=== PATIENT | male | born 1995 | race Caucasian/White ===

== ENCOUNTER 2017-12-12 02:30 | Emergency (ER) | payer OTHER ==
[~2017-12-12] VITALS: Ht 175.3 cm; Wt 72.6 kg
[~2017-12-12 02:30] MED LIST: ACNE MEDICINE; IBUPROFEN 600600 M1 PO; VYVANSE20 MG PO; ZITHROMAX TRI-500 MG PO
[2017-12-12] MEDS ORDERED: ALEVE220 MG PO (02:37)
[2017-12-12] MEDS ORDERED: NORCO 5-325 TA1 EACH PO (03:05)
[2017-12-12 03:29] VITALS: BP 143/80
== END 2017-12-12 03:30 | disposition home or self-care (01) ==
LOC: ER 02:30
DX: S52.121A Displaced fracture of head of right radius, initial encounter for closed fracture (principal); M25.532 Pain in left wrist; W17.89XA Other fall from one level to another, initial encounter; Y93.89 Activity, other specified; Y92.89 Other specified places as the place of occurrence of the external cause; Y99.8 Other external cause status

== ENCOUNTER 2019-01-28 00:01 | Emergency (ER) | payer OTHER ==
[~2019-01-28] VITALS: Ht 175.3 cm; Wt 81.7 kg
[~2019-01-28 00:01] MED LIST changes: +ALEVE220 MG PO; +NORCO 5-325 TA1 EACH PO
[2019-01-28] MEDS ORDERED: NOHOMEMEDICATIONS (00:26)
[2019-01-28 00:28] LABS: HEMATOCRIT 44.7 % (42.0-52.0); HEMOGLOBIN 15.4 gm/dL (14.0-18.0); MCH 29.7 pg (26.0-34.0); MCHC 34.4 g/dL (28.0-37.0); MCV 86.3 fL (80.0-100.0); RBC 5.18 mil/uL (4.50-6.00); RDW 13.1 % (10.5-14.5); WBC 7.3 thou/uL (4.0-11.0)
[2019-01-28 00:36] LABS: CREATININE 1.2 mg/dL (0.7-1.3); MAGNESIUM 2.2 mg/dL (1.8-2.4)
[2019-01-28 00:47] VITALS: BP 160/88
--- NOTE | 2019-01-28 12:14 | EKG ---
[address] [employer] [place] [address] ELECTROCARDIOGRAM REPORT Name: TYLER ASTORGA Room #: DEP PEARL Duong#: [id number] ������������������ Admission: 01/28/19 ������������������ Attend Phys: Discharge: 01/28/19 ������������������ Date of : [birth year] Report #: [id number] ����������������������������������������������������������������� [id number] THIS REPORT FOR: //name// [facility] ED Test Date: 2019-01-28 Test Time: 00:06:35 Pat Name: TYLER ASTORGA Department: Room: Gender: Permanent Waver: ANA LILIA : 1995 Requested By: Slava Zacarias Order Number: [id number] MD: Emmanuel Reyna Measurements Intervals [place] Rate: 85 P: 39 MI: 156 QRS: 52 QRSD: 86 T: 1 QT: 346 QTc: 412 Interpretive Statements Sinus rhythm Compared to ECG 07/01/2016 22:05:43 No significant changes Electronically Signed On 01-28-2019 12:14:31 CDT by Emmanuel Reyna [email or web address] ��������������������������������������������� <ELECTRONICALLY SIGNED> ���������������������������������������� By: Emmanuel Reyna MD ��������������������������������������������� 01/28/19 1214 0006 0006 MD MELCHOR Tamayo
== END 2019-01-28 00:54 | disposition home or self-care (01) ==
LOC: ER 00:01
PROVIDERS: Emergency Medicine
DX: F41.9 Anxiety disorder, unspecified (principal)